=== PATIENT | male | born 2000 | race Two or more races ===

== ENCOUNTER 2021-01-19 13:07 | Emergency (ER) | payer BC, OTHER ==
[~2021-01-19] VITALS: Ht 175.3 cm; Wt 63.5 kg
[2021-01-19 13:22] VITALS: BP 97/47
== END 2021-01-19 15:40 | disposition home or self-care (01) ==
LOC: ER 13:07
DX: S76.011A Strain of muscle, fascia and tendon of right hip, initial encounter (principal); V19.9XXA Pedal cyclist (driver) (passenger) injured in unspecified traffic accident, initial encounter; Y93.I9 Activity, other involving external motion; Y92.89 Other specified places as the place of occurrence of the external cause; Y99.8 Other external cause status
CPT/HCPCS: 73700